=== PATIENT | female | born 1995 | race Caucasian/White ===

== ENCOUNTER 2019-02-06 13:47 | Emergency (ER) | payer MEDICAID ==
[2019-02-06] MEDS ORDERED: AZITHROMYCIN 250 MG TABLET PO ONE (14:58)
[2019-02-06] MEDS ORDERED: LIDOCAINE 1% INJ (10 MG/ML) 10 ML MDV INJ ONE (14:58)
[2019-02-06] MEDS ORDERED: CEFTRIAXONE INJ 250 MG VIAL IM ONE (14:58)
--- NOTE | 2019-02-06 15:00 | ER Document Report ---
ED Medical Screen (RME) - General Chief Complaint: Vaginal Discharge Stated Complaint: STD CHECK Time Seen by Provider: 02/06/19 14:52 Notes: 24-year-old sexually active female here for an STD check. Patient states that she has been with high risk partners 1 of her partners were tested positive for chlamydia but did not tell her has not been treated and another partner tested positive for chlamydia and was treated today. Patient complains of abnormal vaginal discharge, pelvic pain, and has hot flashes and chills but denies actual fever. Exam: Well-appearing no acute distress, lungs clear to auscultation all morejon, regular cardiac rate and rhythm. Abdominal exam limited in triage but some generalized tenderness to deep palpation while sitting I have greeted and performed a rapid initial assessment of this patient. A comprehensive ED assessment and evaluation of the patient, analysis of test results and completion of medical decision making process will be conducted by an additional ED providers. - Related Data Allergies/Adverse Reactions: No Known Allergies Allergy (Verified 02/06/19 14:47) Physical Exam - Vital signs Vitals: Temp Pulse Resp BP Pulse Ox 98.1 F 84 12 147/85 H 98 02/06/19 14:15 02/06/19 14:15 02/06/19 14:15 02/06/19 14:15 02/06/19 14:15 Course - Vital Signs Vital signs: Temp Pulse Resp BP Pulse Ox 98.1 F 84 12 147/85 H 98 02/06/19 14:15 02/06/19 14:15 02/06/19 14:15 02/06/19 14:15 02/06/19 14:15
[2019-02-06 15:28] LABS: APPEARANCE,URINE CLEAR; BILIRUBIN,URINE NEGATIVE (NEGATIVE); COLOR,URINE YELLOW; GLUCOSE, URINE NEGATIVE (NEGATIVE); KETONES,URINE NEGATIVE (NEGATIVE); LEUKOCYTE ESTERASE,URINE NEGATIVE (NEGATIVE); NITRITE,URINE NEGATIVE (NEGATIVE); PROTEIN,URINE NEGATIVE (NEGATIVE); URINE SPECIFIC GRAVITY 1.026; UROBILINOGEN,URINE NEGATIVE mg/dL (<2.0)
--- NOTE | 2019-02-06 15:54 | RADIOLOGY REPORT (SQ) ---
EXAM DESCRIPTION: U/S NON OB PEL TV W/DOPPLER COMPLETED DATE/TIME: 02/06/2019 3:42 pm REASON FOR STUDY: pelvic pain, std exposure, abd disch COMPARISON: None. TECHNIQUE: Dynamic and static grayscale images acquired of the pelvis via transvaginal approach and recorded on PACS. Additional selected color Doppler and spectral images recorded. LIMITATIONS: None. FINDINGS: UTERUS: Contour normal. No mass. ENDOMETRIAL STRIPE: No focal or generalized thickening. No masses. CERVIX: No nabothian cysts. RIGHT OVARY AND DOPPLER: Normal size. No worrisome masses. There are multiple follicles. Normal art erial vascular flow without evidence for torsion. LEFT OVARY AND DOPPLER: Normal size. No worrisome masses. There are multiple follicles. Normal lon rial vascular flow without evidence for torsion. FREE FLUID: None noted. OTHER: No other significant finding. MEASUREMENTS: UTERUS: 5.9 x 2.5 x 4.4 cm. ENDOMETRIAL STRIPE: 5 mm. RIGHT OVARY: 4.4 x 3.4 x 2 cm. LEFT OVARY: 3 x 3.1 x 2.3 cm. IMPRESSION: No acute finding. Correlate for polycystic ovarian syndrome. TECHNICAL DOCUMENTATION: JOB ID: [id number] [employer]- All Rights Reserved Rev-07/02 Reading location - IP/workstation name: [email or web address]
[2019-02-06 16:30] LABS: ABSOLUTE LYMPHOCYTES (AUTO) 0.6 10^3/uL (0.5-4.7); ABSOLUTE MONOCYTES (AUTO) 0.8 10^3/uL (0.1-1.4); ABSOLUTE NEUT (AUTO) 3.4 10^3/uL (1.7-8.2); BASOPHILS % (AUTO) 0.8 % (0-2); EOSINOPHILS % (AUTO) 0.2 % (0-6); HEMOGLOBIN 13.8 g/dL (12.0-15.5); LYMPHOCYTES % (AUTO) 11.3 % (13-45); MEAN CORPUSCULAR HGB CONC 34.5 g/dL (32.0-36.0); MEAN CORPUSCULAR VOLUME 87 fl (80-97); MONOCYTES % (AUTO) 17.1 % (3-13); PLATELET COUNT 268 10^3/uL (150-450); RED BLOOD COUNT 4.59 10^6/uL (3.72-5.28); RED CELL DISTRIBUTION WIDTH 13.7 % (11.5-14.0); SEGMENTED NEUTROPHILS % (AUTO) 70.6 % (42-78); TOTAL CELLS COUNTED % (AUTO) 100 %; WHITE BLOOD COUNT 4.9 10^3/uL (4.0-10.5)
--- NOTE | 2019-02-06 16:49 | ER Document Report ---
ED General - General Chief Complaint: Vaginal Discharge Stated Complaint: STD CHECK Time Seen by Provider: 02/06/19 14:52 Primary Care Provider: [facility] [Provider Group] - Follow up in 1 week Notes: 24-year-old female presents for abnormal vaginal discharge, odor, pelvic pain for 2 days. Patient has multiple partners and was told by one that they were positive for chlamydia. Patient also has associated nausea. Patient denies any fever, abdominal pain, vomiting, constipation. - Related Data Allergies/Adverse Reactions: No Known Allergies Allergy (Verified 02/06/19 14:47) Past Medical History - Social History Smoking Status: Never Smoker Family History: None Patient has suicidal ideation: No Patient has homicidal ideation: No Review of Systems - Review of Systems Notes: Constitutional: Negative for fever. HENT: Negative for sore throat. Eyes: Negative for visual changes. Cardiovascular: Negative for chest pain. Respiratory: Negative for shortness of breath. Gastrointestinal: Negative for abdominal pain, vomiting or diarrhea. Genitourinary: Positive for vaginal discharge and odor. Negative for dysuria. Musculoskeletal: Negative for back pain. Skin: Negative for rash. Neurological: Negative for headaches, weakness or numbness. 10 point ROS negative except as marked above and in HPI. Physical Exam - Vital signs Vitals: Temp Pulse Resp BP Pulse Ox 98.1 F 84 12 147/85 H 98 02/06/19 14:15 02/06/19 14:15 02/06/19 14:15 02/06/19 14:15 02/06/19 14:15 - Notes Notes: GENERAL: Well-appearing, well-nourished and in no acute distress. HEAD: Atraumatic, normocephalic. EYES: Extraocular movements intact, sclera anicteric, conjunctiva are normal. NECK: Normal range of motion, supple without lymphadenopathy or JVD. ABDOMEN: Soft, nontender. No guarding, no rebound. No masses appreciated. PELVIC: White vaginal discharge. No cervical motion or adnexal tenderness. EXTREMITIES: Normal range of motion, no pitting or edema. No clubbing or cyanosis. NEUROLOGICAL: Cranial nerves II through XII grossly intact. Normal speech, normal gait. PSYCH: Normal mood, normal affect. SKIN: Warm, Dry, normal turgor, no rashes or lesions noted. Course - Re-evaluation Re-evalutation: 02/06/19 nontoxic, well-appearing 24-year-old female. Abdomen exam is soft nontender. Pelvic reveals white discharge consistent with yeast/BV with no adne xal or cervical motion tenderness. Patient was exposed to chlamydia. Patient was treated prophylactically for gonorrhea and chlamydia. Pelvic cultures were sent. Urine was negative. Ultrasound of pelvis was negative with concern for polycystic ovarian syndrome. Patient to be referred to [facility] for further work- up. Discussed all results with patient. 02/06/19 17:21 Wet prep back. No trichomonas. Bacteria seen. Will treat for bacterial vaginosis and have pt follow up with obgyn as discussed. Return precautions given. All questions/concerns addressed prior to discharge. - Vital Signs Vital signs: Temp Pulse Resp BP Pulse Ox 98.1 F 84 12 147/85 H 98 02/06/19 14:15 02/06/19 14:15 02/06/19 14:15 02/06/19 14:15 02/06/19 14:15 - Laboratory Result Diagrams: 02/06/19 16:02 02/06/19 16:02 Laboratory results interpreted by me: 02/06/19 16:02 Lymph % (Auto) 11.3 L [place] % (Auto) 17.1 H Discharge - Discharge Clinical Impression: Exposure to chlamydia, Bacterial vaginosis Condition: Stable Disposition: HOME, SELF-CARE Instructions: Chlamydia ([facility]), Vaginosis, Bacterial ([facility]) Additional Instructions: Your pelvic labs did not show trichomonas however did show bacteria. Please take Flagyl as prescribed and finish all doses even if you feel better. Do not drink alcohol while taking Flagyl as it will make you very sick. You were treated for gonorrhea and chlamydia today. We will call you if either is positive. Please follow-up with [facility] as listed. Return to ER for any worsening symptoms, including worsening pelvic pain, worsening discharge, nausea/vomiting, abdominal pain, chest pain, shortness of breath, or any other symptoms that are concerning to you. Prescriptions: Metronidazole [Flagyl 500 mg Tablet] 500 mg PO BID #14 tablet Forms: Return to Work Referrals: [facility] [Provider Group] - Follow up in 1 week
[2019-02-06 16:51] LABS: ALBUMIN 4.7 g/dL (3.5-5.0); ALKALINE PHOSPHATASE 87 U/L (38-126); ANION GAP 13 (5-19); ASPARTATE AMINO TRANSFERASE 23 U/L (14-36); BILIRUBIN,DIRECT 0.1 mg/dL (0.0-0.4); BILIRUBIN,TOTAL 0.6 mg/dL (0.2-1.3); BLOOD UREA NITROGEN 10 mg/dL (7-20); CALCIUM 9.5 mg/dL (8.4-10.2); CARBON DIOXIDE 25 mmol/L (22-30); CHLORIDE 102 mmol/L (98-107); GLUCOSE 93 mg/dL (75-110); POTASSIUM 3.8 mmol/L (3.6-5.0); TOTAL PROTEIN 8.1 g/dL (6.3-8.2)
[2019-02-06 17:05] LABS: BACTERIA (WET MOUNT) 4+ BACTERIA SEEN; EPITHELIALS (WET MOUNT) 3+ EPITHELIALS SEEN; T.VAGINALIS (WET MOUNT) NO TRICHOMONAS SEEN; WBCS (WET MOUNT) 1+ WBCS SEEN; YEAST (WET MOUNT) NO YEAST SEEN
[2019-02-06 17:34] VITALS: BP 138/97
[2019-02-06 18:05] LABS: CHLAM PCR NOT DETECTED (NOT DETECT)
== END 2019-02-06 17:35 | disposition home or self-care (01) ==
LOC: ER 13:47
DX: N76.0 Acute vaginitis (principal); B96.89 Other specified bacterial agents as the cause of diseases classified elsewhere; Z20.2 Contact with and (suspected) exposure to infections with a predominantly sexual mode of transmission; R10.2 Pelvic and perineal pain; R11.0 Nausea
CPT/HCPCS: 99284; 96372; 36415; 87210; 85025; 81025; 80053; 81001; 87491; 87591; 76830; 93976; J0696